=== PATIENT | male | born 1950 | race Caucasian/White ===

== ENCOUNTER → 2017-07-10 | Outpatient (CLI) | payer MEDICARE | LOC: M.RAD 15:36 | DX: K59.00 Constipation, unspecified (principal) ==

== ENCOUNTER → 2018-02-09 | Outpatient (CLI) | payer MEDICARE | LOC: M.RAD 10:12 → M.ULTRA 11:00 | DX: N64.4 Mastodynia (principal); Z85.46 Personal history of malignant neoplasm of prostate ==

== ENCOUNTER 2020-01-26 14:46 | Inpatient (IN) | payer MEDICARE ==
[~2020-01-26] VITALS: Ht 182.9 cm; Wt 91.5 kg
[2020-01-26 14:52] VITALS: BP 167/104
[2020-01-26] MEDS ORDERED: LUNESTA3 MG PO (15:02)
[2020-01-26] MEDS ORDERED: COZAAR 25 MG TA25 M2 PO (15:02)
[2020-01-26] MEDS ORDERED: PROAIR HFA8.5 GM INH (15:03)
[2020-01-26] MEDS ORDERED: LIPITOR40 MG PO (15:03)
[2020-01-26] MEDS ORDERED: WIXELA 500-501 EACH INH (15:04)
[2020-01-26 15:25] LABS: URINE BILIRUBIN NEGATIVE (Negative); URINE BLOOD TRACE (Negative); URINE CLARITY CLEAR; URINE COLOR YELLOW; URINE GLUCOSE-RANDOM NEGATIVE (Negative); URINE KETONES NEGATIVE (Negative); URINE LEUKOCYTES-REFLEX NEGATIVE (Negative); URINE NITRITE-REFLEX NEGATIVE (Negative); URINE PROTEIN NEGATIVE (Negative); URINE UROBILINOGEN 0.2 E.U./dl (0.2-1.0)
[2020-01-26 15:26] LABS: HEMATOCRIT 44.6 % (42.0-52.0); HEMOGLOBIN 15.2 gm/dL (14.0-18.0); MCH 31.1 pg (26.0-34.0); MCHC 34.2 g/dL (28.0-37.0); MCV 90.9 fL (80.0-100.0); MPV 8.5 fl. (7.2-11.1); NUCLEATED RBCS 0 /100WBC; PLATELET COUNT* 242 thou/uL (150-400); RDW-CV 13.3 % (10.5-14.5); WBC 12.3 thou/uL (4.0-11.0)
[2020-01-26 15:32] LABS: AMP/METHAMP Negative (Negative); BARBITURATES Negative (Negative); BENZODIAZEPINES Negative (Negative); COCAINE Negative (Negative); METHADONE Negative (Negative); OPIATES Negative (Negative); PCP Negative (Negative); THC Negative (Negative)
[2020-01-26 15:33] LABS: CALCIUM 8.5 mg/dL (8.5-10.1); POTASSIUM 3.8 mmol/L (3.5-5.1)
[2020-01-26 15:36] LABS: APTT 28.5 Seconds (25.0-31.3); INR 1.1; PROTIME 11.3 Seconds (9.20-11.50)
[2020-01-26 15:43] LABS: MAGNESIUM 1.8 mg/dL (1.8-2.4); TOTAL BILIRUBIN 0.5 mg/dL (<0.1-1.0); TOTAL PROTEIN 7.6 g/dL (6.4-8.2)
[2020-01-26 16:03] LABS: ABSOLUTE LYMPHOCYTES 1.4 thou/uL (0.8-5.3); ABSOLUTE MONOCYTES 0.2 thou/uL (0.0-1.2); ABSOLUTE NEUTROPHILS 10.7 thou/uL (1.6-8.1)
[2020-01-26 16:04] LABS: PLATELET ESTIMATE ADEQUATE
--- NOTE | 2020-01-26 16:44 | EKG ---
[place] [address] ELECTROCARDIOGRAM REPORT Name: LUPE NIXON Room: [facility]#: [id number] Admission: 01/26/20 Attend Phys: Discharge: Date of : 50 Date of Service: 01/26/20 1453 Report #: [id number] THIS REPORT FOR: //name// [facility] ED Test Date: 2020-01-26 Test Time: 14:53:35 Pat Name: LUPE NIXON Department: Room: Gender: Community [facility] Director: [place] : 1950 Requested By: Maritza Lawrence Order Number: [id number] MD: Alvaro Zepeda Measurements Intervals [place] Rate: 84 P: 47 WY: 166 QRS: -20 QRSD: 100 T: 85 QT: 368 QTc: 436 Interpretive Statements Sinus rhythm Borderline left axis deviation RSR' in V1 or V2, probably normal variant Minimal ST depression, lateral leads Baseline wander in lead(s) V3 No previous ECG available for comparison Electronically Signed On 01-26-2020 16:44:44 [employer]PER[employer] by Alvaro Zepeda [email or web address] <ELECTRONICALLY SIGNED> By: Alvaro Zepeda MD, FACC 01/26/20 1644 1453 1453 Alvaro Zepeda MD, [facility] /EPI
[2020-01-26 18:24] VITALS: BP 149/90
--- NOTE | 2020-01-26 18:59 | NUR ---
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
[2020-01-26 19:30] VITALS: BP 163/87
[2020-01-27] VITALS (7 sets, daily range): BP systolic 103–137; BP diastolic 55–70
--- NOTE | 2020-01-27 05:35 | NUR ---
ASSUMED PT CARE AT APPROX 1930. PT IS AWAKE AND ORIENTED X4. PT IS NOT IN DISTRESS. PT IS TRACING SR ON THE REVENUE CYCLE MANAGER. PT IS COMPLAINING OF LUQ ABDOMINAL PAIN THAT RADIATES TO THE BACK AND LEFT CHEST, PARTIALLY RELIEVED BY PAIN MEDICINE GIVEN PER APR. ZOFRAN GIVEN FOR NAUSEA WITH RELIEF. PT IS ABLE TO REST SOME AFTER AMBIEN GIVEN PER APR. NO ACUTE CHANGES THIS SHIFT. CALL LIGHT WITHIN REACH. HOURLY ROUNDING DONE FOR PT SAFETY.
[2020-01-27] MEDS ORDERED: ADVAIR 500-501 EACH INH (08:55)
[2020-01-27 09:08] LABS: ABSOLUTE LYMPHOCYTES 0.7 thou/uL (0.8-5.3); ABSOLUTE MONOCYTES 0.3 thou/uL (0.0-1.2); ABSOLUTE NEUTROPHILS 11.1 thou/uL (1.6-8.1); BASOPHILS 0.3 %; EOSINOPHILS 0.1 %; HEMATOCRIT 37.9 % (42.0-52.0); HEMOGLOBIN 12.8 gm/dL (14.0-18.0); LYMPHOCYTES 5.4 %; MCH 30.4 pg (26.0-34.0); MCHC 33.7 g/dL (28.0-37.0); MCV 90.2 fL (80.0-100.0); MONOCYTES 2.5 %; MPV 8.1 fl. (7.2-11.1); NUCLEATED RBCS 0 /100WBC; PLATELET COUNT* 198 thou/uL (150-400); POLYS 91.7 %; RBC 4.21 mil/uL (4.50-6.00); RDW-CV 13.1 % (10.5-14.5); WBC 12.1 thou/uL (4.0-11.0)
[2020-01-27 09:19] LABS: ALBUMIN 3.1 g/dL (3.4-5.0); CALCIUM 7.4 mg/dL (8.5-10.1); CREATININE 0.9 mg/dL (0.6-1.3); POTASSIUM 3.5 mmol/L (3.5-5.1); TOTAL BILIRUBIN 0.4 mg/dL (<0.1-1.0); TOTAL PROTEIN 6.2 g/dL (6.4-8.2)
--- NOTE | 2020-01-27 12:00 | NUR ---
ASSUMED CARE OF PT AT 0730. PT RESTING IN BED. A&0X4, COMPLAINS OF PAIN TO LUQ AND BACK-TREATED WITH PRN FENTANYL WITH MINIMAL RELIEF. DR NOTIFIED-INCREASE DOSAGE OBTAINED AND GIVEN TO PT WITH MORE RELIEF. REFER TO EMAR. TRACING SB/SR ON THE WARP TIER. ON RA SAT UPPER 90'S. DENIES ANY SHORTNESS OF BREATH. IVF AND IV ABX PER EMAR. PT UP AD MIGUEL ÁNGEL IN ROOM. PT ON CLEAR LIQUID DIET. TOLERATING FAIR. PT REQUESTED ZOFRAN FOLLOWING BREAKFAST DUE TO NAUSEA-GIVEN WITH COMPLETE RELIEF. PT GOAL FOR TODAY IS PAIN AND NAUSEA MGMT AND IVF. AM ASSESSMENT CHARTED. MEDICATIONS PER APR. PT REPOSITIONS SELF. HOURLY ROUNDING OBSERVED. BED IN LOW POSITION. CALL LIGHT WITHIN REACH. WILL CONTINUE PLAN OF CARE.
--- NOTE | 2020-01-27 16:03 | NUR ---
CM SPOKE TO THE PT TO DISCUSS CM ASSESSMENT. PT A&O, INDEPENDENT WITH ADL'S, AND ACTIVE. PT OWNS 0 DME. PT HAS 0 HX OF HH OR SNF. NO D/C PLANNING NEEDS ANTICIPATED. CM WILL REMAIN AVAILABLE TO ASSIST AND FOLLOW NEEDED.
--- NOTE | 2020-01-28 03:28 | NUR ---
ASSUMED CARE OF PT AT 1900. PT IS ALERT AND ORIENTED. VSS. PERRMAYELA. PT IS IN SINUS RYTHM ON THE TELEMETRY. PT IS RESTING COMFORTABLY IN BED. RESPIRATIONS ARE EVEN AND NONLABORED. WILL CONTINUE TO MONITOR PT.
[2020-01-28 05:16] VITALS: BP 119/72
[2020-01-28 08:00] VITALS: BP 131/63
[2020-01-28 11:30] VITALS: BP 146/76
[2020-01-28 12:05] LABS: ABSOLUTE LYMPHOCYTES 0.7 thou/uL (0.8-5.3); ABSOLUTE MONOCYTES 0.6 thou/uL (0.0-1.2); ABSOLUTE NEUTROPHILS 7.4 thou/uL (1.6-8.1); BASOPHILS 0.5 %; EOSINOPHILS 0.4 %; HEMATOCRIT 36.1 % (42.0-52.0); HEMOGLOBIN 12.2 gm/dL (14.0-18.0); MCH 31.3 pg (26.0-34.0); MCHC 33.8 g/dL (28.0-37.0); MCV 92.5 fL (80.0-100.0); MONOCYTES 6.8 %; MPV 8.3 fl. (7.2-11.1); NUCLEATED RBCS 0 /100WBC; PLATELET COUNT* 179 thou/uL (150-400); POLYS 84.3 %; RBC 3.91 mil/uL (4.50-6.00); RDW-CV 13.3 % (10.5-14.5); WBC 8.8 thou/uL (4.0-11.0)
[2020-01-28 12:19] LABS: ALBUMIN 2.9 g/dL (3.4-5.0); CALCIUM 7.6 mg/dL (8.5-10.1); CREATININE 0.9 mg/dL (0.6-1.3); POTASSIUM 3.4 mmol/L (3.5-5.1); TOTAL BILIRUBIN 0.3 mg/dL (<0.1-1.0); TOTAL PROTEIN 6.3 g/dL (6.4-8.2)
[2020-01-28 17:00] VITALS: BP 133/74
--- NOTE | 2020-01-28 18:40 | NUR ---
RECEIVED REPORT. ASSUMED CARE OF PT AROUND 0730. AM ASSESSMENT AND VITALS COMPLETED CHARTED. MEDS PER EMAR. PAIN TO BELLY MANAGED WITH IV AND PO PAIN MEDICATIONS WITH PARTIAL RELIEF. FAMILY VISITED THIS AFTERNOON. PT TOLERATING DIET. HOPES TO GO HOME SOON. PT CURRENTLY RESTING IN BED. CALL LIGHT IS WITHIN REACH. 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 FALL PRECAUTIONS IN PLACE. HOURLY ROUNDING PERFORMED.
[2020-01-29 00:11] VITALS: BP 145/83
--- NOTE | 2020-01-29 02:27 | NUR ---
ASSUMED CARE OF PT AT 1900. PT IS ALERT AND ORIENTED. VSS. PERRLA. NO COMPLAINTS OF PAIN AT THIS TIME. PT REPORTS SOA. PT REQUIRING 2 LITERS OF O2 NOW. PT POSSIBLY GETTING FLUID OVERLOAD. FLUIDS DISCONTINUED FOR NOW. PT IS IN SINUS TACHYCARDIA. HERT RATE IN THE 130'S WHEN PT IS UP. PT IS RESTING COMFORTABLY. WILL CONTINUE TO MONITOR PT.
[2020-01-29 05:22] VITALS: BP 118/71
[2020-01-29 05:36] LABS: HEMATOCRIT 36.1 % (42.0-52.0); HEMOGLOBIN 12.4 gm/dL (14.0-18.0); MCH 31.2 pg (26.0-34.0); MCHC 34.3 g/dL (28.0-37.0); MPV 9.2 fl. (7.2-11.1); NUCLEATED RBCS 0 /100WBC; PLATELET COUNT* 175 thou/uL (150-400); RBC 3.97 mil/uL (4.50-6.00); RDW-CV 13.3 % (10.5-14.5); WBC 7.6 thou/uL (4.0-11.0)
[2020-01-29 06:26] LABS: ALBUMIN 2.8 g/dL (3.4-5.0); CALCIUM 7.5 mg/dL (8.5-10.1); CREATININE 0.8 mg/dL (0.6-1.3); POTASSIUM 3.2 mmol/L (3.5-5.1); TOTAL BILIRUBIN 0.4 mg/dL (<0.1-1.0); TOTAL PROTEIN 6.3 g/dL (6.4-8.2)
[2020-01-29 07:45] LABS: ABSOLUTE BASOPHILS 0.1 thou/uL (0.0-0.2); ABSOLUTE EOSINOPHILS 0.1 thou/uL (0.0-0.7); ABSOLUTE LYMPHOCYTES 0.5 thou/uL (0.8-5.3); ABSOLUTE MONOCYTES 0.5 thou/uL (0.0-1.2); ABSOLUTE NEUTROPHILS 6.5 thou/uL (1.6-8.1); PLATELET ESTIMATE ADEQUATE
[2020-01-29 07:46] LABS: ANISOCYTOSIS 1+; POIKILOCYTOSIS 1+
[2020-01-29 08:00] VITALS: BP 166/105
[2020-01-29 12:38] VITALS: BP 163/96
[2020-01-29 16:40] VITALS: BP 163/90
[2020-01-29 19:20] VITALS: BP 148/85
[2020-01-30] VITALS: BP 137/86
--- NOTE | 2020-01-30 03:06 | NUR ---
ASSUMED CARE OF PT AT 1900. PT IS ALERT AND ORIENTED. VSS. PERRLA. NO COMPLAINTS OF PAIN. PT IS IN SINUS RYTHM ON THE TELEMETRY. PT IS RESTING COMFORTABLY IN BED. RESPIRATIONS ARE EVEN AND NONLABORED. WILL CONTINUE TO MONITOR PT.
[2020-01-30 04:00] VITALS: BP 135/90
[2020-01-30 05:43] LABS: HEMATOCRIT 35.9 % (42.0-52.0); HEMOGLOBIN 12.4 gm/dL (14.0-18.0); MCH 30.9 pg (26.0-34.0); MCHC 34.4 g/dL (28.0-37.0); MCV 89.8 fL (80.0-100.0); MPV 9.1 fl. (7.2-11.1); RDW-CV 13.3 % (10.5-14.5)
[2020-01-30 06:01] LABS: ALBUMIN 2.8 g/dL (3.4-5.0); CALCIUM 8.1 mg/dL (8.5-10.1); CREATININE 0.9 mg/dL (0.6-1.3); POTASSIUM 3.2 mmol/L (3.5-5.1); TOTAL BILIRUBIN 0.3 mg/dL (<0.1-1.0); TOTAL PROTEIN 6.5 g/dL (6.4-8.2)
[2020-01-30 08:00] VITALS: BP 150/87
[2020-01-30] MEDS ORDERED: OXYCODONE HCL 55 MG PO (08:40)
[2020-01-30] MEDS ORDERED: LEVOFLOXACIN500 MG PO (08:40)
[2020-01-30] MEDS ORDERED: PREDNISONE 10 M10 M1 PO (08:40)
[2020-01-30 09:28] LABS: CHOLESTEROL 112 mg/dL (<200); HDL CHOLESTEROL 36 mg/dL (>40); LDL CHOLESTEROL 66 mg/dL (<100); TC:HDL 3.1 Ratio (Not establshd); TRIGLYCERIDE 50 mg/dL (<150); VLDL 10 mg/dL (<40)
[2020-01-30 09:29] LABS: SERUM ASSESSMENT Clear
[2020-01-30 11:19] VITALS: BP 150/87
== END 2020-01-30 12:05 | disposition home or self-care (01) | DRG 177 ==
LOC: M.ERS 14:46 → M.TBA-ER 17:06 → M.2W 17:06
PROVIDERS: Internal Medicine; Nurse Practitioner; Nurse Practitioner Family; ADMIT Internal Medicine; ATTEND Internal Medicine
DX: J15.6 Pneumonia due to other Gram-negative bacteria (principal); K85.90 Acute pancreatitis without necrosis or infection, unspecified; J96.21 Acute and chronic respiratory failure with hypoxia; E87.1 Hypo-osmolality and hyponatremia; J44.1 Chronic obstructive pulmonary disease with (acute) exacerbation; J44.0 Chronic obstructive pulmonary disease with (acute) lower respiratory infection; J81.1 Chronic pulmonary edema; I10 Essential (primary) hypertension; F17.210 Nicotine dependence, cigarettes, uncomplicated; E78.5 Hyperlipidemia, unspecified; Z20.828 Contact with and (suspected) exposure to other viral communicable diseases; Z85.46 Personal history of malignant neoplasm of prostate; Z98.1 Arthrodesis status; Z79.899 Other long term (current) drug therapy